=== PATIENT | male | born 1970 | race African-American/Black ===

== ENCOUNTER 2022-02-25 19:54 | Emergency (ER) | payer OTHER ==
[2022-02-25] MEDS ORDERED: FAMOTIDINE 20 MG/50 ML IVPB 20 MG/50 ML MG IVPB ONE ×2 (20:14→20:29)
[2022-02-25] MEDS ORDERED: ACETAMINOPHEN 1000 MG/100 ML BAG IVPB ONE (20:14)
[2022-02-25 20:15] VITALS: BP 142/98; PULSE 78; TEMP 98.8; BMI 27.2
[2022-02-25 20:28] LABS: HEMATOCRIT 41.7 % (35.4-49); HEMOGLOBIN 14.5 G/dL (11.7-16.9); MCH 29.2 pg (25.7-33.7); MCHC 34.8 g/dl (32.0-35.9); MEAN CELL VOLUME 83.9 fl (80-96); MEAN PLT VOLUME 8.2 fl (7.5-11.1); PLATELET COUNT 233.9 10^3/uL (134-434); RBC 4.97 10^6/uL (4.00-5.60); RDW 14.6 % (11.9-15.9); WHITE BLOOD COUNT 11.7 10^3/uL (4.0-10.8)
[2022-02-25] MEDS ORDERED: ACETAMINOPHEN INJECTION 100 ML IVPB ONE (20:29)
[2022-02-25] MEDS ORDERED: MAG HYDROX/AL HYDROX/SIMETH 30 ML UNIT-DOSE CUP ONE (20:29)
[2022-02-25] MEDS: MAG HYDROX/AL HYDROX/SIMETH 30 ML UNIT-DOSE CUP PO ONE ×2 (20:31→20:32)
[2022-02-25 20:43] LABS: ALBUMIN 4.2 g/dl (3.4-5.0); BILIRUBIN,TOTAL 0.6 mg/dl (0.2-1); CALCIUM 9.5 mg/dl (8.5-10); TOT PROT 7.3 g/dl (6.4-8.2)
== END 2022-02-25 21:40 | disposition home or self-care (01) ==
LOC: FER 19:54
DX: T62.91XA Toxic effect of unspecified noxious substance eaten as food, accidental (unintentional), initial encounter (principal)
CPT/HCPCS: 36415; 80053; 84484; 85027; 93005; 99283-25